=== PATIENT | male | born 1940 | race Caucasian/White ===

== ENCOUNTER → 2017-06-30 11:07 | Outpatient (CLI) | payer MEDICARE, SELFPAY ==
[2017-06-30 13:07] LABS: PSA,Total- Diagnostic 2.09 ng/mL (0.0-4.0)
== END ==
PROVIDERS: Family Provider Family Medicine; PCP Family Medicine; Visit Provider Nurse Practitioner Adult Health
DX: R97.20 Elevated prostate specific antigen [PSA] (principal)
CPT/HCPCS: 36415; 84153

== ENCOUNTER → 2017-08-22 09:19 | Outpatient (CLI) | payer MEDICARE, SELFPAY ==
--- NOTE | 2017-08-22 09:34 | MRI_ITS ---
STUDY: MRI LEFT HIP REASON FOR EXAM: Worsening left hip pain, no specific injury. TECHNIQUE: Standardized fat and water weighted pulse sequences were obtained in all 3 orthogonal planes. COMPARISON: MRI images 08/02/2012. FINDINGS: There is left hip arthrosis with very small marginal osteophytes and chondral thinning/irregularity (proton-density sagittal image 12). Normal acetabulum. There is a tear of the left superior labrum (inversion recovery coronal images 13-16) with a paralabral cyst (inversion recovery coronal image 13). Normal left femoral head. Normal left femoral neck and intratrochanteric region. There is cystic change of the contralateral right acetabulum and femoral head (inversion recovery coronal image 13). Normal gluteus minimus, medius and iliopsoas tendons and distal insertions. There is no trochanteric, iliopsoas or iliopectineal bursitis. Normal superior and inferior pubic rami. Normal pubic symphysis. Normal ischial tuberosity. Normal origin of the hamstring tendons. Normal visualized iliac wing, sacroiliac joint, and sacral ala. There is prosthetic enlargement (T1 coronal images 16, 17). MRI/Lower Ext Joint Only (Routine) IMPRESSION: Left hip arthrosis. Tear of the left superior labrum with paralabral cyst. Electronically Signed: Jesús Aceves MD at 11:22 EDT Tel , Service support ,
== END ==
PROVIDERS: Family Provider Family Medicine; PCP Family Medicine; Visit Provider Family Medicine
DX: M16.12 Unilateral primary osteoarthritis, left hip (principal)
CPT/HCPCS: 73721

== ENCOUNTER → 2017-08-30 09:43 | Outpatient (CLI) | payer MEDICARE, SELFPAY ==
--- NOTE | 2017-08-30 09:45 | RAD_ITS ---
STUDY: X-RAY - PELVIS AND LEFT HIP REASON FOR EXAM: Male, 76 years old. Atraumatic pain. TECHNIQUE: Radiological exam, hip, unilateral, with pelvis when performed; 2 or 3 views. COMPARISON: None. FINDINGS: There is a non-specific bowel gas pattern. There is a lobular ossification in the gluteal region probably from prior injections or remote trauma. There is mild generalized osteopenia. Normal bilateral iliac wings, sacroiliac joints and visualized sacrum. Normal bilateral superior and inferior pubic rami. Normal pubic symphysis. Normal bilateral ischial tuberosities. There is moderate arthrosis of the left hip and mild arthrosis of the right hip. RAD/Hip 2-3 Views with Pelvis IMPRESSION: Osteopenia with osteoarthrosis of both hips, left greater than right. Electronically Signed: Mayank Watters MD at 12:49 EDT , Service support ,
== END ==
PROVIDERS: Family Provider Family Medicine; PCP Family Medicine; Visit Provider Orthopaedic Surgery
DX: M25.552 Pain in left hip (principal); G89.29 Other chronic pain
CPT/HCPCS: 73502

== ENCOUNTER → 2017-09-27 14:28 | Outpatient (CLI) | payer MEDICARE, SELFPAY ==
--- NOTE | 2017-09-27 14:27 | RAD_ITS ---
STUDY: X-RAY CHEST REASON FOR EXAM: Male, 76 years old. Cough, 2 weeks TECHNIQUE: PA and lateral chest COMPARISON: None. FINDINGS: Scattered calcified pulmonary nodules consistent with old granulomatous disease. Lungs otherwise clear. The lungs are mildly hyperinflated and hyperlucent suggesting underlying COPD. There is no effusion or pneumothorax. There is no evidence of pneumonia. Normal cardiomediastinal silhouette, calvin and pleural margins. No acute osseous or upper abdominal process. Osteopenia. Thoracic kyphosis, mild. Multilevel bridging anterior osteophytes of the thoracic spine in a pattern suggesting diffuse idiopathic hyperostosis associated with only mild disc degenerative disease. RAD/Chest PA and Lateral IMPRESSION: No acute cardiopulmonary process. No convincing radiographic evidence of pneumonia. Electronically Signed: Quentin Centeno, at 16:24 EDT Tel , Service support ,
== END ==
PROVIDERS: Family Provider Family Medicine; PCP Family Medicine; Visit Provider Nurse Practitioner Family
DX: R05 Cough (principal)
CPT/HCPCS: 71046

== ENCOUNTER → 2018-02-09 09:34 | Outpatient (CLI) | payer MEDICARE, SELFPAY ==
[2018-02-09 12:52] LABS: Anion Gap 9 (5-15); BUN 23 mg/dL (7-18); BUN/Creat Ratio 22.5 RATIO (10-20); Calcium,Total 8.9 mg/dL (8.5-10.1); Chloride 101 mmol/L (98-107); Creatinine, Serum 1.02 mg/dL (0.70-1.30); EST Glomerular Filtration Rate 75 mL/min (>60); Est Glom Filt Rate - Afr Amer 91 mL/min (>60); Glucose 98 mg/dL (74-106); Potassium 3.6 mmol/L (3.5-5.1); Sodium Level 137 mmol/L (136-145)
== END ==
PROVIDERS: Family Provider Family Medicine; PCP Family Medicine; Referring Provider Nurse Practitioner Family; Visit Provider Nurse Practitioner Family
DX: I10 Essential (primary) hypertension (principal)
CPT/HCPCS: 36415; 80048

== ENCOUNTER → 2018-07-26 12:07 | Outpatient (CLI) | payer MEDICARE, SELFPAY ==
[2018-07-26 11:43] VITALS: BMI 31.1
[2018-07-26 14:26] LABS: ALB/GLOB Ratio 1.4 RATIO (0.9-2.4); AST(SGOT) 29 U/L (15-37); Alanine Aminotransfer ALT/SGPT 28 U/L (16-61); Albumin, Serum 4.2 g/dL (3.2-5.0); Alkaline Phosphatase 66 U/L (45-117); Anion Gap 7 (5-15); BUN 25 mg/dL (7-18); BUN/Creat Ratio 21.6 RATIO (10-20); Calcium,Total 8.2 mg/dL (8.5-10.1); Chloride 102 mmol/L (98-107); Cholesterol 167 mg/dL (200); Creatinine, Serum 1.16 mg/dL (0.70-1.30); EST Glomerular Filtration Rate 65 mL/min (>60); Est Glom Filt Rate - Afr Amer 78 mL/min (>60); Glucose 97 mg/dL (74-106); High Density Lipoprotein 62 mg/dL; Potassium 4.1 mmol/L (3.5-5.1); Protein, Total 7.2 g/dL (6.4-8.2); Sodium Level 136 mmol/L (136-145); Thyroid Stim Hormone (TSH) 4.92 uIU/mL (0.358-3.74); Triglycerides 175 mg/dL; Very Low Density Lipoprotein 35 mg/dL (5-40)
== END ==
PROVIDERS: Family Provider Family Medicine; PCP Family Medicine; Visit Provider Family Medicine
DX: E78.5 Hyperlipidemia, unspecified (principal)
CPT/HCPCS: 36415; 80053; 80061; 84443

== ENCOUNTER → 2018-07-31 16:29 | Outpatient (CLI) | payer MEDICARE, SELFPAY ==
[2018-07-26 11:43] VITALS: BMI 31.1
--- NOTE | 2018-07-31 16:40 | RAD_ITS ---
HISTORY: low back pain EXAM/TECHNIQUE: XR Spine Lumbar 2 or 3 Views: COMPARISON: None. FINDINGS: # of images incl. paperwork: 3 No fracture or dislocation or osseous destruction. Grade 1 degenerative 2 mm anterolisthesis of L4 on L5. Marked facet greater than disc degeneration L4-5 and L5-S1. No acute findings in the soft tissues. Calcific atherosclerosis. RAD/Lumbar Spine 2 or 3 Views IMPRESSION: Severe facet degeneration lower lumbar spine with grade 1 degenerative anterolisthesis of L4 on L5. at 0938 Reported and signed by: Marcos Lynn MD Electronically Signed: Marcos Lynn, at 9:37 EDT Tel , Service support ,
== END ==
PROVIDERS: Family Provider Family Medicine; PCP Family Medicine; Referring Provider Family Medicine; Visit Provider Family Medicine
DX: M54.9 Dorsalgia, unspecified (principal); G89.29 Other chronic pain
CPT/HCPCS: 72100

== ENCOUNTER → 2019-01-24 11:57 | Outpatient (CLI) | payer MEDICARE, SELFPAY ==
[2019-01-24 11:04] VITALS: BMI 31.1
[2019-01-24 14:39] LABS: Cholesterol 176 mg/dL (200); High Density Lipoprotein 60 mg/dL; Triglycerides 225 mg/dL; Very Low Density Lipoprotein 45 mg/dL (5-40)
== END ==
PROVIDERS: Family Provider Family Medicine; PCP Family Medicine; Visit Provider Family Medicine
DX: E03.9 Hypothyroidism, unspecified (principal)
CPT/HCPCS: 36415; 80061

== ENCOUNTER → 2019-06-27 11:35 | Outpatient (CLI) | payer MEDICARE, SELFPAY ==
[2019-06-27 13:06] LABS: Anion Gap 6 (5-15); BUN 17 mg/dL (7-18); Calcium,Total 8.9 mg/dL (8.5-10.1); Chloride 102 mmol/L (98-107); EST Glomerular Filtration Rate 77 mL/min (>60); Est Glom Filt Rate - Afr Amer 93 mL/min (>60); Glucose 99 mg/dL (74-106); Potassium 4.1 mmol/L (3.5-5.1); Sodium Level 136 mmol/L (136-145)
== END ==
PROVIDERS: PCP Family Medicine; Referring Provider Family Medicine; Visit Provider Family Medicine
DX: E87.1 Hypo-osmolality and hyponatremia (principal)
CPT/HCPCS: 36415; 80048

== ENCOUNTER → 2019-09-04 | Outpatient (CLI) | payer MEDICARE, SELFPAY | END | disposition home or self-care (01) | LOC: LABSPEC 09-05 14:00 | PROVIDERS: PCP Family Medicine; Referring Provider Family Medicine; Visit Provider Family Medicine | DX: Z20.828 Contact with and (suspected) exposure to other viral communicable diseases (principal) | CPT/HCPCS: 87635; G2023; U0004 ==

== ENCOUNTER → 2019-09-26 13:17 | Outpatient (CLI) | payer MEDICARE, SELFPAY ==
[2019-09-25 16:36] VITALS: BMI 29.4
== END ==
PROVIDERS: PCP Family Medicine; Referring Provider Family Medicine; Visit Provider Family Medicine
DX: R05 Cough (principal)

== ENCOUNTER → 2019-11-02 08:22 | Outpatient (CLI) | payer MEDICARE, SELFPAY ==
[2019-09-25 16:36] VITALS: BMI 29.4
--- NOTE | 2019-11-02 12:34 | PFTCOMP_ITS ---
COMPLETE PULMONARY FUNCTION TEST INTERPRETATION Brief HPI: Patient is a 78 year old male, currently under the care of Dr. Ornelas, who presents to [facility] for complete pulmonary function tests secondary to diagnosis of chronic cough. Respiratory therapist reports good effort and reproducible results. Interpretation: Forced expiration spirometry shows no large airways obstructive ventilatory defect with an FEV1 of 120% predicted. There is no significant bronchodilator response by strict ATS criteria. Spirograms are of good quality and plateau normally. The respiratory flow volume loop shows a normal pattern. Lung volumes by body plethysmography show a normal total lung capacity at 6.22 L, 110% predicted. All other lung volumes are within normal limits. Diffusion capacity by carbon monoxide is normal at 119% predicted. The airway resistance is normal. No previous pulmonary function tests were available for review. Impression: These pulmonary function tests are within normal limits.
== END ==
PROVIDERS: PCP Family Medicine; Referring Provider Family Medicine; Visit Provider Family Medicine
DX: R05 Cough (principal)
CPT/HCPCS: 94060; 94726; 94729

== ENCOUNTER 2020-02-19 12:56 | Outpatient (RCR) | payer MEDICARE, SELFPAY ==
[2020-02-14 13:06] VITALS: BMI 29.4
--- NOTE | 2020-02-19 14:00 | HP.PTEVAL ---
Patient's Visit Information SHAGUFTA MCQUEEN is a 79 year old M referred to Physical Therapy by Dr. Diana Laguerre DO with a diagnosis of L knee OA, balance deficits. Date of Evaluation: 02/19/20 Physical Therapist: Herman Smith, PT, ATC - Visit Plan Frequency: 1x/Week Duration: 2 Weeks Plan: Pt to perform balance performance assessment by Tha Zepeda PT, next visit. Then issue and instruct pt on HEP of L LE strengthening and balance activity. - Subjective Pt reports he has had balance concerns in L LE for a chronic period of time. Pt notes he has fallen a couple of times over the past 6 months. Pt notes he has had L knee pain as well for the past month which he believes is due to arthritis. Pt notes he had xrays taken last week but has not had any results as of yet. Pt notes his L foot tends to catch when he is decesending stairs, and notes he has to hold on to 2 handrails to avoid falls. Pt reports he does have some tingling and numbness in feet, but he is able to feel the bottom of his feet ok. Pt has started to use a walking stick when he walks outside secondary to LBP. 0/10 pain in L knee at rest, 8/10 pain with prolonged standing. - Pain L knee OA Pain Intensity (Out of 10): 0 Pain Intensity Range: 8 - Objective Neuro: B LE sensation is WNL to light touch. B achilles reflex= 2/3. MMT: L knee flexion and hip flexion 4-/5. All other B LE MMT= 5/5 throughout. ROM: B LE's are WFL on this date. Minor limitations with R knee flexion from past ACL surgery. FGA: - Balance Scores Functional Gait Assessment Score: 23 % Disability: 23.3400 - Goals Goal 1:: I with HEP Goal Time Frame: 1 Week - Rehabilitation Potential Physical Therapy Diagnosis: Pt has L knee pain, LE weakness, and balance deficits secondary to L knee OA. Rehabilitation Potential: Good - Anticipated Interventions Patient/Client Instruction: Educate patient on: Condition, Plan of Care For the Purpose of:: To improve self management Therapeutic Exercise to Include: Strength training, Endurance training, Balance training, Dynamic Lumbar Stabilization For the Purpose of:: To decrease pain, To improve muscle performance and motor function Thank you for the opportunity to evaluate your patient. For Medicare and Medicare HMO plans, please review the plan of care and approve it. It will need to be FAXED BACK to us at [phone] for Medicare purposes. For Medicare only, by signing this I certify the plan of care. Please let me know if there are questions or concerns regarding this plan of care. Physician Signature: Date:
--- NOTE | 2020-04-08 14:03 | HP.PT.NRP ---
SHAGUFTA Wagner SREESANDHYA was seen in my office for initial evaluation on 02/19/20. The following Plan of Care was established for this patient: Initial Frequency: 1x/Week Initial Duration: 2 Weeks Patient/Client Instruction: Educate patient on: Condition, Plan of Care For the Purpose of:: To improve self management Therapeutic Exercise to Include: Strength training, Endurance training, Balance training, Dynamic Lumbar Stabilization For the Purpose of:: To decrease pain, To improve muscle performance and motor function This patient was last seen in our office . Pertinent comments regarding their Physical therapy will appear below: Pt was evaluated for L knee pain on the date of 02/19/20. Pt has not returned through todays date and is discontinued at this time At this point I will be discontinuing this patient from physical therapy. I would be happy to see this patient again in the future if found appropriate by the physician. Thank you! Herman Smith, PT, ATC
== END 2020-02-19 19:00 | disposition home or self-care (01) ==
LOC: PT 12:56
PROVIDERS: PCP Family Medicine; Referring Provider Orthopaedic Surgery; Visit Provider Orthopaedic Surgery
DX: M17.12 Unilateral primary osteoarthritis, left knee (principal); R26.89 Other abnormalities of gait and mobility
CPT/HCPCS: 97161

== ENCOUNTER → 2020-04-09 11:25 | Outpatient (CLI) | payer MEDICARE, SELFPAY ==
--- NOTE | 2020-04-09 11:26 | RAD_ITS ---
STUDY: X-RAY CHEST REASON FOR EXAM: Male, 79 years old. COUGH, SHORT OF BREATH TECHNIQUE: 2 views COMPARISON: Prior chest radiograph 09/27/2017 FINDINGS: The lungs are clear and expanded. Calcified granuloma of the left upper lobe. Normal size heart. Normal mediastinum and calvin. Normal visualized pulmonary arteries. There is atherosclerotic calcification of the aortic arch with tortuosity. There are diffuse degenerative changes of the visualized thoracic spine. Normal visualized ribs, clavicles, and shoulders. There is no demonstrated abnormality of the visualized soft tissue structures of the upper abdomen. RAD/Chest PA and Lateral IMPRESSION: No acute cardiopulmonary findings or changes. Negative for new consolidation, other infiltrates or pleural effusion. Stigmata of old granulomatous disease. Normal stable cardiac size. Atherosclerotic changes of the thoracic aorta. Electronically Signed: Ofelia Amaya MD at 19:27 EST , Service support ,
== END ==
PROVIDERS: PCP Family Medicine; Referring Provider Nurse Practitioner Family; Visit Provider Nurse Practitioner Family
DX: R05 Cough (principal)
CPT/HCPCS: 71046

== ENCOUNTER → 2020-05-15 13:37 | Outpatient (CLI) | payer MEDICARE, SELFPAY ==
[2020-05-15 14:06] LABS: Absolute Lymphocyte Count 1.34 X10^3/uL (0.83-4.51); Absolute Neutrophil Count 5.6 X10^3/uL (2.0-7.7); Basophil# 0.04 X10^3/uL; Basophil% 0.5 % (0-1); Eosinophil# 0.07 X10^3/uL; Eosinophils% 0.9 % (0-5); Hematocrit 39.3 % (40-54); Hemoglobin 13.5 g/dL (13.0-16.5); Lymphocyte # 1.34 X10^3/ul (4.0); Lymphocyte % 17.6 % (19-41); Mean Corp Hgb Conc 34.4 g/dL (32-36); Mean Corpuscular Hgb 32.8 pg (27.0-32.0); Mean Corpuscular Volume 95.4 fL (80-94); Mean Platelet Vol. 8.8 fl (6.2-12.0); Monocyte# 0.57 X10^3/uL; Monocyte% 7.5 % (0-10); NRBC Flagged by Analyzer 0 % (0-5); Neutrophil # 5.56 X10^3/uL (2.7-7.7); Neutrophil % 73.2 % (47-70); Platelet Count 221 K/mm3 (150-450); RBC Distribution Width CV 11.6 % (11.6-14.6); RBC Distribution Width SD 39.6 fl (35.1-43.9); Red Blood Count 4.12 M/mm3 (4.6-6.2); White Blood Count 7.6 K/mm3 (4.4-11.0)
[2020-05-18 12:07] LABS: Alternaria tenuis <0.10 kU/L (Class 0); Ash, White <0.10 kU/L (Class 0); Aspergillus fumigatus <0.10 kU/L (Class 0); Bermuda Grass <0.10 kU/L (Class 0); Birch <0.10 kU/L (Class 0); Black Walnut <0.10 kU/L (Class 0); Cat Hair / Dander,Stand <0.10 kU/L (Class 0); Cedar, Mountain <0.10 kU/L (Class 0); Cladosporium herbarum <0.10 kU/L (Class 0); Cockroach, American <0.10 kU/L (Class 0); Cottonwood <0.10 kU/L (Class 0); D farinae Mite <0.10 kU/L (Class 0); D pteronyssinus <0.10 kU/L (Class 0); Dog Epithelia <0.10 kU/L (Class 0); Elm, American White <0.10 kU/L (Class 0); Immunoglobulin E 32 IU/mL (6-495); Maple/Box Elder <0.10 kU/L (Class 0); Mulberry, White <0.10 kU/L (Class 0); Oak, White <0.10 kU/L (Class 0); Pecan <0.10 kU/L (Class 0); Penicillium Notatum <0.10 kU/L (Class 0); Pigweed, Rough <0.10 kU/L (Class 0); Ragweed, Short/Common <0.10 kU/L (Class 0); Russian Thistle <0.10 kU/L (Class 0); Sheep Sorrel <0.10 kU/L (Class 0); Sycamore, American <0.10 kU/L (Class 0); Timothy Grass <0.10 kU/L (Class 0)
[2020-05-19 18:39] LABS: Mouse Urine <0.10 kU/L (Class 0)
[2020-05-20 20:07] LABS: Aspirgillus flavus Negative (Neg:<1:1); Aspirgillus fumigatus Negative (Neg:<1:1); Aspirgillus niger Negative (Neg:<1:1)
[2020-05-20 21:19] LABS: Immunoglobulin E 34 IU/mL (6-495)
== END ==
PROVIDERS: PCP Family Medicine; Referring Provider Internal Medicine Critical Care Medicine; Visit Provider Internal Medicine Critical Care Medicine
DX: R05 Cough (principal); J30.9 Allergic rhinitis, unspecified; K21.9 Gastro-esophageal reflux disease without esophagitis
CPT/HCPCS: 36415; 82785; 85025; 86003; 86606

== ENCOUNTER → 2020-08-21 13:45 | Outpatient (CLI) | payer MEDICARE, SELFPAY ==
[2020-08-21 13:09] VITALS: BMI 30.4
[2020-08-21 15:41] LABS: ALB/GLOB Ratio 1.5 RATIO (0.9-2.4); AST(SGOT) 29 U/L (15-37); Alanine Aminotransfer ALT/SGPT 36 U/L (16-61); Albumin, Serum 4.2 g/dL (3.2-5.0); Alkaline Phosphatase 75 U/L (45-117); Anion Gap 7 (5-15); BUN 21 mg/dL (7-18); BUN/Creat Ratio 21.9 RATIO (10-20); Calcium,Total 8.8 mg/dL (8.5-10.1); Chloride 101 mmol/L (98-107); Cholesterol 191 mg/dL (200); Creatinine, Serum 0.96 mg/dL (0.70-1.30); EST Glomerular Filtration Rate 80 mL/min (>60); Est Glom Filt Rate - Afr Amer 97 mL/min (>60); Globulin 2.8 g/dL (2.2-4.2); Glucose 92 mg/dL (74-106); High Density Lipoprotein 67 mg/dL; Potassium 3.8 mmol/L (3.5-5.1); Sodium Level 135 mmol/L (136-145); Triglycerides 152 mg/dL; Very Low Density Lipoprotein 30 mg/dL (5-40)
== END ==
PROVIDERS: PCP Family Medicine; Referring Provider Family Medicine; Visit Provider Family Medicine
DX: E78.5 Hyperlipidemia, unspecified (principal); E03.9 Hypothyroidism, unspecified
CPT/HCPCS: 36415; 80053; 80061

== ENCOUNTER → 2021-02-23 11:54 | Outpatient (CLI) | payer MEDICARE, SELFPAY ==
[2020-11-19 08:55] VITALS: BMI 30.4
--- NOTE | 2021-02-23 13:49 | NEURO_ITS ---
NCS and/or EMG Patient Report Ordering Doctor: Chucho Miranda NP DATE OF SERVICE: 02/23/21 Indication: Intermittent numbness and tingling of both hands (right greater than left). Symptoms have improved following PT and bracing. Evaluate for median neuropathy. Findings: Nerve conduction studies were performed in the right and left upper extremities. The right median motor study recording the abductor pollicis brevis showed a normal amplitude, prolonged distal latency and mildly slowed conduction velocity. The right ulnar motor study recording the abductor digiti minimi showed a normal amplitude, normal distal latency and normal conduction velocity. No conduction block or focal slowing was present across the elbow. The right median sensory response recording digit two showed a reduced amplitude, prolonged latency and markedly slowed conduction velocity. The right ulnar sensory response recording digit five showed a normal amplitude, latency and conduction velocity. The right radial sensory response recording over the extensor snuff box showed a normal amplitude, latency and conduction velocity. The left median motor study recording the abductor pollicis brevis showed a normal amplitude, prolonged distal latency and borderline conduction velocity. The left ulnar motor study recording the abductor digiti minimi showed a normal amplitude, normal distal latency and normal conduction velocity. No conduction block or focal slowing was present across the elbow. The left median sensory response recording digit two showed a borderline amplitude, prolonged latency and slowed conduction velocity. The left ulnar sensory response recording digit five showed a normal amplitude, latency and conduction velocity. The left radial sensory response recording over the extensor snuff box showed a normal amplitude, latency and conduction velocity. Right median-ulnar lumbrical / interosseous motor latencies showed a prolonged median latency compared to the ulnar. Left median-ulnar lumbrical / interosseous motor latencies showed a prolonged median latency compared to the ulnar. Needle EMG of the right upper extremity and cervical paraspinal muscles was performed. No denervation was seen in any muscle, but insertional activity was increased in the abductor pollicis brevis. Motor units in the abductor pollicis brevis were large amplitude, long duration with normal recruitment. All other motor unit morphology, activation and recruitment patterns were normal. Needle EMG of the left abductor pollicis brevis muscle was performed. No denervation was seen. Motor unit morphology, activation and recruitment patterns were normal. Impression: This is an abnormal study. 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 These findings are compatible with the clinical diagnosis of carpal tunnel syndrome. In addition, there is no electrophysiologic evidence of a superimposed cervical radiculopathy in the right upper extremity. Fer Moran D.O. [facility] Codes Neurology Neurology Interp Codes: 02747-72 [facility] [place]erv tst castrejon (interp) (59), [id number] [facility] [place] w/n test comp (interp) and [id number] Nr cndj test 13/> studies (interp)
== END ==
PROVIDERS: PCP Family Medicine; Referring Provider Nurse Practitioner Family; Visit Provider Nurse Practitioner Family
DX: G56.03 Carpal tunnel syndrome, bilateral upper limbs (principal)
CPT/HCPCS: 95885; 95886; 95913

== ENCOUNTER → 2021-03-09 10:50 | Outpatient (CLI) | payer MEDICARE, SELFPAY ==
[2021-03-09 12:23] LABS: PSA,Total - Annual Screen 3.24 ng/mL (0.00-4.00)
== END ==
PROVIDERS: PCP Family Medicine; Referring Provider Urology; Visit Provider Urology
DX: Z12.5 Encounter for screening for malignant neoplasm of prostate (principal)
CPT/HCPCS: 36415; 84153; G0103

== ENCOUNTER 2021-07-29 11:36 | Outpatient (CLI) | payer MEDICARE, SELFPAY ==
[2021-07-29 12:23] LABS: Hematocrit 40.3 % (40-54); Hemoglobin 14.1 g/dL (13.0-16.5); Mean Corpuscular Hgb 33.7 pg (27.0-32.0); Mean Corpuscular Volume 96.2 fL (80-94); Mean Platelet Vol. 8.8 fl (6.2-12.0); Platelet Count 243 K/mm3 (150-450); RBC Distribution Width CV 11.9 % (11.6-14.6); RBC Distribution Width SD 41.5 fl (35.1-43.9); Red Blood Count 4.19 M/mm3 (4.6-6.2); White Blood Count 6.6 K/mm3 (4.4-11.0)
[2021-07-29 13:10] LABS: Anion Gap 7 (5-15); BUN 20 mg/dL (7-18); BUN/Creat Ratio 22.2 RATIO (10-20); Calcium,Total 8.4 mg/dL (8.5-10.1); Chloride 102 mmol/L (98-107); Cholesterol 190 mg/dL (200); EST Glomerular Filtration Rate 86 mL/min (>60); Est Glom Filt Rate - Afr Amer 104 mL/min (>60); Glucose 100 mg/dL (74-106); High Density Lipoprotein 70 mg/dL; Potassium 3.8 mmol/L (3.5-5.1); Sodium Level 136 mmol/L (136-145); Thyroid Stim Hormone (TSH) 2.13 uIU/mL (0.358-3.74); Triglycerides 132 mg/dL; Very Low Density Lipoprotein 26 mg/dL (5-40)
== END 2021-07-29 23:59 | disposition home or self-care (01) ==
LOC: BIMLAB 11:37
PROVIDERS: PCP Family Medicine; Referring Provider Nurse Practitioner Family; Visit Provider Nurse Practitioner Family
DX: E03.9 Hypothyroidism, unspecified (principal); K21.9 Gastro-esophageal reflux disease without esophagitis; R05.9 Cough, unspecified; G56.03 Carpal tunnel syndrome, bilateral upper limbs; M54.9 Dorsalgia, unspecified; G89.29 Other chronic pain; I10 Essential (primary) hypertension
CPT/HCPCS: 36415; 80048; 80061; 84443; 85027

== ENCOUNTER → 2021-11-04 | Outpatient (CLI) | payer MEDICARE, SELFPAY ==
--- NOTE | 2021-11-04 13:47 | CT_ITS ---
STUDY: CT ABDOMEN AND PELVIS WITH CONTRAST REASON FOR EXAM: Male, 80 years old. Two-month history of perineal swelling. RADIATION DOSAGE (If Supplied By Facility): CTDIvol = ( 15.12 ) mGy, DLP = ( 963.22 ) mGycm TECHNIQUE: Transaxial images were obtained from the dome of the diaphragm to the symphysis pubis with oral contrast. Oral and amp; IV Readi-CAT and amp; 100mL Isovue-300 was administered. Sagittal and coronal images were reconstructed. Individualized dose optimization techniques were used for this CT. COMPARISON: None. FINDINGS: Minimal degree of increased markings at the lung bases. This is suggestive of mild scarring. Small bulla seen in the right lower lobe. Tiny calcific granulomas in the left lower lobe. This measures 1.1 cm. Coronary artery calcification. Normal liver. Normal gallbladder and extrahepatic biliary system. There are multiple benign calcified granulomata of the spleen. Normal pancreas. Normal bilateral adrenal glands. Normal right kidney. Normal left kidney. There is a small hiatal hernia. Normal small intestine. There are multiple colonic diverticula consistent with diverticulosis. The appendix is visualized and appears normal. There is scattered atherosclerotic calcification of the abdominal aorta, without a demonstrated aneurysm. Normal inferior vena cava. Normal retroperitoneum. Normal urinary bladder. There is enlargement of the prostate gland. It measures 4.6 x 4.2 cm. This causes indentation at the bladder base. There is evidence of a prior TURP. Moderate sized right inguinal hernia containing fat. Mild degree of increased markings in the subcutaneous fat in the region of both medial aspects of the gluteus. No evidence of abscess collection. Calcified right injection granuloma. There are degenerative changes of the visualized lumbar spine. CT/Abdomen/Pelvis WITH Contrast IMPRESSION: Moderate sized right inguinal hernia containing fat. Increased markings in the subcutaneous fat along the medial aspects of both gluteal regions without focal abscess or fluid collection. Prostatic enlargement with indentation of the bladder base. Evidence of a prior TURP. Electronically Signed: Farhad Avila MD at 15:24 EDT ,
[2021-11-04 13:56] LABS: CREATININE FINGERSTICK < 0.9 mg/dL (0.70-1.30); EGFR FINGERSTICK > 60.0000 mL/min (>60)
== END | disposition home or self-care (01) ==
PROVIDERS: PCP Family Medicine; Visit Provider Nurse Practitioner Family
DX: K40.90 Unilateral inguinal hernia, without obstruction or gangrene, not specified as recurrent (principal); R10.2 Pelvic and perineal pain; G89.29 Other chronic pain
CPT/HCPCS: 74177; Q9967

== ENCOUNTER → 2022-04-07 | Outpatient (CLI) | payer MEDICARE, SELFPAY ==
[2022-04-07 12:45] LABS: Anion Gap 8 (5-15); BUN 21 mg/dL (7-18); Calcium,Total 8.4 mg/dL (8.5-10.1); Chloride 101 mmol/L (98-107); Creatinine, Serum 0.96 mg/dL (0.70-1.30); EST Glomerular Filtration Rate 80 mL/min (>60); Est Glom Filt Rate - Afr Amer 97 mL/min (>60); Glucose 104 mg/dL (74-106); Potassium 4.1 mmol/L (3.5-5.1); Sodium Level 134 mmol/L (136-145)
== END | disposition home or self-care (01) ==
LOC: BIMLAB 09:05
PROVIDERS: PCP Family Medicine; Referring Provider Family Medicine; Visit Provider Family Medicine
DX: I10 Essential (primary) hypertension (principal)
CPT/HCPCS: 36415; 80048

== ENCOUNTER → 2022-04-21 | Outpatient (CLI) | payer MEDICARE, SELFPAY | END | disposition home or self-care (01) | PROVIDERS: PCP Family Medicine; Visit Provider Family Medicine | DX: R55 Syncope and collapse (principal) | CPT/HCPCS: 93225; 93226 ==

== ENCOUNTER → 2022-10-06 | Outpatient (CLI) | payer MEDICARE, SELFPAY ==
[2022-10-06 13:29] LABS: ALB/GLOB Ratio 1.3 RATIO (0.9-2.4); AST(SGOT) 31 U/L (15-37); Alanine Aminotransfer ALT/SGPT 31 U/L (16-61); Albumin, Serum 3.8 g/dL (3.2-5.0); Alkaline Phosphatase 69 U/L (45-117); Anion Gap 8 (5-15); BUN 26 mg/dL (7-18); BUN/Creat Ratio 29.7 RATIO (10-20); Calcium,Total 8.3 mg/dL (8.5-10.1); Chloride 105 mmol/L (98-107); Cholesterol 157 mg/dL (200); Creatinine, Serum 0.87 mg/dL (0.70-1.30); EST Glomerular Filtration Rate 89 mL/min (>60); Est Glom Filt Rate - Afr Amer 108 mL/min (>60); Globulin 2.9 g/dL (2.2-4.2); Glucose 106 mg/dL (74-106); High Density Lipoprotein 66 mg/dL; Potassium 3.9 mmol/L (3.5-5.1); Protein, Total 6.7 g/dL (6.4-8.2); Sodium Level 135 mmol/L (136-145); Triglycerides 93 mg/dL; Very Low Density Lipoprotein 19 mg/dL (5-40)
== END | disposition home or self-care (01) ==
LOC: BIMLAB 10:03
PROVIDERS: PCP Family Medicine; Visit Provider Family Medicine
DX: E03.9 Hypothyroidism, unspecified (principal); I10 Essential (primary) hypertension
CPT/HCPCS: 36415; 80053; 80061

== ENCOUNTER → 2023-01-17 | Outpatient (CLI) | payer MEDICARE, SELFPAY ==
[2023-01-17 14:09] LABS: PSA,Total - Annual Screen 5.24 ng/mL (0.00-4.00)
== END | disposition home or self-care (01) ==
LOC: LAB 13:19
PROVIDERS: PCP Family Medicine; Referring Provider Nurse Practitioner; Visit Provider Nurse Practitioner
DX: Z12.5 Encounter for screening for malignant neoplasm of prostate (principal)
CPT/HCPCS: 36415; 84153; G0103

== ENCOUNTER → 2023-03-10 | Outpatient (CLI) | payer MEDICARE, SELFPAY ==
[2023-03-10 15:42] LABS: Hemoglobin A1c 5.2 % (3.8-5.6)
== END | disposition home or self-care (01) ==
LOC: BIMLAB 14:31
PROVIDERS: PCP Family Medicine; Visit Provider Family Medicine
DX: R73.03 Prediabetes (principal)
CPT/HCPCS: 36415; 83036

== ENCOUNTER → 2023-09-15 | Outpatient (CLI) | payer MEDICARE, SELFPAY ==
[2023-09-15 16:42] LABS: Absolute Lymphocyte Count 1.34 X10^3/uL (0.83-4.51); Absolute Neutrophil Count 5.7 X10^3/uL (2.0-7.7); Basophil# 0.04 X10^3/uL; Basophil% 0.5 % (0-1); Eosinophil# 0.11 X10^3/uL; Eosinophils% 1.4 % (0-5); Hemoglobin 14.2 g/dL (13.0-16.5); Lymphocyte # 1.34 X10^3/ul (0.83-4.51); Lymphocyte % 17.1 % (19-41); Mean Corp Hgb Conc 33.8 g/dL (32-36); Mean Corpuscular Hgb 32.9 pg (27.0-32.0); Mean Corpuscular Volume 97.4 fL (80-94); Mean Platelet Vol. 9.6 fl (6.2-12.0); Monocyte# 0.59 X10^3/uL; Monocyte% 7.5 % (0-10); NRBC Flagged by Analyzer 0 % (0-5); Neutrophil # 5.73 X10^3/uL (2.7-7.7); Neutrophil % 73.2 % (47-70); Platelet Count 213 K/mm3 (150-450); RBC Distribution Width CV 11.7 % (11.6-14.6); RBC Distribution Width SD 42.4 fl (35.1-43.9); Red Blood Count 4.31 M/mm3 (4.6-6.2); White Blood Count 7.8 K/mm3 (4.4-11.0)
[2023-09-15 17:01] LABS: BNP,B-Type NATRIURETIC PEPTIDE 231.4 pg/mL (0-100)
[2023-09-15 17:14] LABS: ALB/GLOB Ratio 1.2 RATIO (0.9-2.4); AST(SGOT) 21 U/L (15-37); Alanine Aminotransfer ALT/SGPT 26 U/L (16-61); Albumin, Serum 3.8 g/dL (3.2-5.0); Alkaline Phosphatase 61 U/L (45-117); Anion Gap 5 (5-15); BUN 29 mg/dL (7-18); BUN/Creat Ratio 29.4 RATIO (10-20); Calcium,Total 8.5 mg/dL (8.5-10.1); Chloride 106 mmol/L (98-107); Creatinine, Serum 0.99 mg/dL (0.70-1.30); EST Glomerular Filtration Rate 77 mL/min (>60); Est Glom Filt Rate - Afr Amer 93 mL/min (>60); Globulin 3.2 g/dL (2.2-4.2); Glucose 98 mg/dL (74-106); Magnesium 2.5 mg/dL (1.6-2.6); Potassium 4.1 mmol/L (3.5-5.1); Sodium Level 136 mmol/L (136-145); Thyroid Stim Hormone (TSH) 4.79 uIU/mL (0.358-3.74); Troponin-I HS 16 pg/mL (3.0-78.0)
== END | disposition home or self-care (01) ==
LOC: BIMLAB 15:08
PROVIDERS: PCP Family Medicine; Referring Provider Physician Assistant; Visit Provider Physician Assistant
DX: R06.02 Shortness of breath (principal); E03.9 Hypothyroidism, unspecified; G47.33 Obstructive sleep apnea (adult) (pediatric)
CPT/HCPCS: 36415; 80053; 83735; 83880; 84443; 84484; 85025

== ENCOUNTER 2023-09-17 17:07 | Emergency (ER) | payer MEDICARE, SELFPAY ==
[2023-09-17 17:10] VITALS: BP 141/71; PULSE 55; RESP 18; TEMP 36.4; O2SAT 98; BMI 29.5
--- NOTE | 2023-09-17 17:36 | EX.ED.DYSGE1 ---
HPI History of Present Illness Chief Complaint: Palpitations Detail of Chief Complaint: Lightheaded and bradycardia, heart rate 28 Informant: patient Onset/Context/Timing Onset: Today (Heart rate 28 on pulse oximeter.) and Weeks (Dyspnea on exertion and discomfort in chest) Context: Sudden Onset Timing: Intermittent (For both) Quality: Detailed in the HPI narrative Location: Cardiovascular Current Severity: Gone Maximum Severity: Moderate Worsened by: Dyspnea and discomfort in chest with activity past week Relieved by: Rest Associated Symptoms Associated Symptoms: Nothing Narrative Narrative: Patient is an 82-year-old male. He has history of asthma, obstructive sleep apnea, hypothyroidism, hyperlipidemia, hypertension and GERD. He was seen by ANGEL Palma for [facility] for bradycardia on September 15. Patient was scheduled for outpatient testing which included a echocardiogram. He had outpatient labs which included a CBC, comprehensive metabolic panel, thyroid, magnesium, BNP and troponin. Reason for echo was bradycardia. Also for shortness of breath. Today at approximately 30 this morning while standing he was lightheaded diaphoretic and pulse ox read heart rate of 28. Patient does have a Fitbit. He was unaware that he could access the foot bed to determine if rate was accurate or not. He has a resting average heart rate in the low 50s for the past 30 days. He has complained of shortness of breath and dyspnea with activity and chest discomfort with activity for the past week. He has no known coronary artery disease. He has to sleep with multiple pillows because of his asthma. He has noticed recent swelling of his lower extremities. Denies abdominal pain, black stool or maroon-colored stool. Patient is not on an anticoagulant. Prior similar symptoms: Yes Recent Illness/Hospitalization: [facility] Medical History Arthritis Asthma Bilateral carpal tunnel syndrome Bilateral hand numbness Chronic back pain CTS (carpal tunnel syndrome) Dupuytren's contracture of left hand Enlarged prostate GERD (gastroesophageal reflux disease) History of cataract History of pneumonia History of stomach ulcers Hyperlipemia Hypertension NADEEM (obstructive sleep apnea) Home Medications dutasteride 0.5 mg capsule 0.5 mg PO QDAY 08/10/17 [History Last Taken Unknown] cholecalciferol (vitamin D3) 50 mcg (2,000 unit) tablet 2,000 unit PO DAILY 07/26/18 [History Last Taken Unknown] cyanocobalamin (vitamin B-12) 1,000 mcg tablet (Vitamin B-12) 1,000 mcg PO DAILY 07/26/18 [History Last Taken Unknown] ascorbic acid (vitamin C) 1,000 mg tablet 2 g PO DAILY 02/14/20 [History Last Taken Unknown] magnesium aspartate-potassium aspartate 250 mg-250 mg tablet tab PO DAILY 02/14/20 [History Last Taken Unknown] vitamins A,C,D-tcjc-tvqbtc 4,296 mcg-226 mg-90 mg capsule (ICaps AREDS) 1 cap PO BID 02/14/20 [History Last Taken Unknown] budesonide-formoterol HFA 160 mcg-4.5 mcg/actuation aerosol inhaler (Symbicort) 2 puff inhalation BID #1 ea 06/11/20 [Rx Last Taken Unknown] montelukast 10 mg tablet (Singulair) 10 mg PO QPM #90 tabs 08/12/20 [Rx Last Taken Unknown] atorvastatin 10 mg tablet 10 mg PO QDAY #90 tabs 08/19/20 [Rx Last Taken Unknown] losartan 50 mg tablet 50 mg PO QDAY #90 tabs 08/21/20 [Rx Last Taken Unknown] pyridoxine (vitamin B6) 25 mg tablet 25 mg PO DAILY 02/25/21 [History Last Taken Unknown] tamsulosin 0.4 mg capsule (Flomax) 0.4 mg PO DAILY 12/10/21 [History Last Taken Unknown] hydrochlorothiazide 12.5 mg tablet 12.5 mg PO DAILY #90 tabs 04/07/22 [Rx Last Taken Unknown] albuterol sulfate 90 mcg/actuation aerosol inhaler (ProAir HFA) 1 - 2 puff inhalation Q6H PRN shortness of breath or wheezing #8.5 grams 04/19/22 [Rx Last Taken Unknown] antiarthritic combination no.2 900 mg tablet (glucosamine-chondroitin) mg PO 04/20/22 [History Last Taken Unknown] levothyroxine 125 mcg tablet 125 mcg PO QDAY #1 TAB 10/06/22 [Rx Last Taken Unknown] Kenalog 40 mg/mL suspension for injection (triamcinolone acetonide) 20 mg (0.5 mL) Tendon Sheath Inj. ONCE trigger finger #0.5 mL 06/15/23 [Clinic Last Taken Unknown] Allergy/AdvReac Type Severity Reaction Status Date / Time No Known Allergies Allergy Verified 09/17/23 17:27 Family History Mother Thyroid disorder Myocardial infarction, Onset Age: 87 Hypertension Hyperlipemia Arthritis Diabetes Father Hypertension Hyperlipemia Grandfather Cancer stomach Surgical History History of carpal tunnel surgery of right wrist History of prostate surgery History of thyroidectomy History of tonsillectomy S/P cataract extraction and insertion of intraocular lens Status post repair of anterior cruciate ligament Social History Smoking Status: Former smoker how long ago did patient quit smokin alcohol intake: current alcohol intake frequency: a few times a month Alcohol type: wine substance use type: does not use what type of physical activity do you participate in: bicycling and weight training frequency: 5-6 times per week ROS ROS ED Constitutional Constitutional ED: Denies chills, fever(s) or subjective Eyes Eyes: Denies blurry vision, change in vision or diplopia ENT ENT ED: Denies ear pain, rhinorrhea or sore throat Cardiovascular Cardiovascular: Reports chest pain and orthopnea; Denies palpitations, paroxysmal nocturnal dyspnea or racing heartbeat Respiratory/Chest Respiratory/Chest: Reports dyspnea, dyspnea on exertion and orthopnea; Denies cough, paroxysmal nocturnal dyspnea or sputum Gastrointestinal Gastrointestinal: Denies abdominal pain, nausea or vomiting Genitourinary Genitourinary ED: Reports other Details: Patient endorses increased urination. He was told to drink more fluids. Musculoskeletal Musculoskeletal: Denies arthralgias or myalgias Integumentary Denies rash Neurologic Neurologic: Reports weakness Endocrine Endocrinology: Denies cold intolerance or heat intolerance Hematologic/Lymphatic Hematologic/Lymphatic: Reports systems reviewed and no addt'l complaints, except as documented EXAM Physical Exam Const Vital Signs: 09/17/23 17:10 09/17/23 17:08 09/17/23 18:08 Temperature 97.6 F L Temperature Source Temporal Pulse Rate 55 L 61 Respiratory Rate 18 16 Respiratory Effort Normal Blood Pressure 141/71 H 136/72 H Blood Pressure Mean 94 93 Pulse Ox 98 97 Oxygen Delivery Method Room Air Room Air 09/17/23 19:00 09/17/23 20:00 Temperature Temperature Source Pulse Rate 54 L 51 L Respiratory Rate 15 14 Respiratory Effort Blood Pressure 125/65 H 131/66 H Blood Pressure Mean 85 87 Pulse Ox 96 94 Oxygen Delivery Method Room Air Room Air Positive well nourished and well developed Constitutional Narrative: Vital signs remarkable for mild elevation of blood pressure and bradycardia General Appearance ED: well developed and NAD; Negative for pallor HEENT Reports moist mucous membranes HEENT Narrative: Head is atraumatic normocephalic. Ears normal. Nares patent. Eyes PERRL and EOMs intact bilaterally General Eye ED: Negative for pale conjunctiva or scleral icterus Neck no lymphadenopathy, supple and no JVD Chest Wall inspection of chest normal Resp normal respiratory effort and clear to auscultation bilaterally Cardio regular rhythm, S1 normal heart sound, S2 normal heart sound and no murmurs Rate: bradycardia GI normal to inspection, nondistended, normoactive bowel sounds, non-tender, non-distended and no masses; Negative for hepatosplenomegaly GI Narrative: There is no pulsatile mass nor is there a bruit. Inspection of the back is normal. Extremity Extremity Narrative: Otherwise normal General Extremety ED: Yes edema General Extremity: edema Neuro No oriented x3, No CN's II-XII intact bilaterally and no sensory deficits noted Sensorium / Orientation: alert Psych mental status grossly normal Skin no rashes or lesions noted, no wounds and No skin turgor normal General Skin Exam: Negative for jaundice or pallor MDM MDM MDM Narrative Medical decision making narrative: Monitor revealed narrow complex rhythm with rate of 61. Patient was in bigeminy. Suspect the pulse ox read low because patient probably was in bigeminy. Patient presently is not complaining of orthostatic lightheadedness. He is denying any chest discomfort presently. Suspect his dyspnea and chest discomfort with activity is anginal equivalent. Will obtain cardiac markers, EKG. Chest x-ray was obtained to evaluate for evidence of any pulmonary abnormality i.e. pneumonia and evidence of congestive heart failure. CBC to assess H&H. BMP to assess renal function. Patient had recent thyroid test this was not repeated. Of note he is on levothyroxine 125 mcg daily. History & Record Review Additional record(s) reviewed:: Prior outpatient record (Documented in the HPI narrative) and Prior labs Lab Data Attestation: I reviewed the patient's lab results. Lab results narrative: CBC is unremarkable. MCV and MCH is slightly elevated. Basic metabolic panel is remarkable for elevated BUN to creatinine ratio of 35:1 otherwise unremarkable. First troponin is normal at 14. Troponin from the ninth was 16. 2-hour troponin is 15 with a delta of 1. This is negative. Patient be discharged home to have outpatient test scheduled for Tuesday. Labs: Laboratory Results - last 24 hr 09/17/23 09/17/23 17:20 19:59 WBC 8.4 RBC 4.28 L Hgb 13.9 Hct 40.8 MCV 95.3 H MCH 32.5 H MCHC 34.1 RDW Std Deviation 40.2 RDW Coeff of Wendie 11.6 Plt Count 203 MPV 9.4 Immature Gran % (Auto) 0.200 Neut % (Auto) 71.6 H Lymph % (Auto) 17.6 L [place] % (Auto) 9.1 Eos % (Auto) 1.0 Baso % (Auto) 0.5 Absolute Neuts (auto) 6.0 Absolute Lymphs (auto) 1.48 Nucleated RBC % 0 Sodium 132 L Potassium 3.9 Chloride 101 Carbon Dioxide 24.0 Anion Gap 7 BUN 34 H Creatinine 0.97 Estim Creat Clear Calc 59.38 Est GFR (MDRD) Af Amer 95 Est GFR (MDRD) Non-Af 79 BUN/Creatinine Ratio 35.0 H Glucose 99 Calcium 8.8 Troponin I High Sens 14 15 Radiography Chest X-Ray - ED: 2 View and Read by ED Physician (Chronic changes. No acute changes. There is mild cardiomegaly. There is no pneumothorax or infiltrate. Left heart border is slightly obscured. There is no effusion noted on the lateral. [place] structures are unremarkable. There is an dependently interpreted by me at 1837) Diagnostic Testing: Clinical Impression(s) from Imaging Studies Chest X-Ray 09/17/23 18:30 IMPRESSION: Normal x-ray examination of the chest. Electronically Signed: Quentin Serrano MD at 18:43 EDT , Discharge Plan Triage Chief Complaint: Palpitations ED Provider: Rodríguez Fam Dx/Rx/DC Orders Clinical Impression: Ventricular bigeminy seen on quality assurance monitor, Hypertension, Hyperlipemia, WING (dyspnea on exertion), Bradycardia, sinus Instructions: ED About Arrhythmias, ED Bradycardia Prescriptions: No Action dutasteride 0.5 mg capsule 0.5 mg PO QDAY cholecalciferol (vitamin D3) 2,000 unit tablet 2,000 unit PO DAILY cyanocobalamin (vitamin B-12) [Vitamin B-12] 1,000 mcg tablet 1,000 mcg PO DAILY ICaps AREDS [id number] capsule 1 cap PO BID ascorbic acid (vitamin C) 1,000 mg tablet 2 g PO DAILY magnesium aspartate-potassium aspartate 250 mg-250 mg tablet 250-250 mg tablet PO DAILY budesonide-formoterol [Symbicort] 160-4.5 mcg/actuation HFA aerosol inhaler 2 puff INHALATION BID Qty: 1 11RF Rx Instructions: administer with spacer, rinse mouth after each use losartan 50 mg tablet 50 mg PO QDAY Qty: 90 3RF pyridoxine (vitamin B6) 25 mg tablet 25 mg PO DAILY tamsulosin [Flomax] 0.4 mg capsule 0.4 mg PO DAILY hydrochlorothiazide 12.5 mg tablet 12.5 mg PO DAILY Qty: 90 3RF levothyroxine 125 mcg tablet 125 mcg PO QDAY Qty: 1 2RF glucosamine-chondroitin 900 mg tablet PO triamcinolone acetonide [Kenalog] 40 mg/mL suspension 20 mg Tendon Sheath Inj. ONCE Qty: 0.5 0RF montelukast [Singulair] 10 mg tablet 10 mg PO QPM Qty: 90 3RF atorvastatin 10 mg tablet 10 mg PO QDAY Qty: 90 3RF albuterol sulfate [ProAir HFA] 90 mcg/actuation HFA aerosol inhaler 1 - 2 puff INHALATION Q6H PRN (Reason: shortness of breath or wheezing) Qty: 8.5 1RF Primary Care Provider: Carlitos Ornelas Referrals: Carlitos Ornelas DO [Primary Care Provider] - 5-7 Days Activity Restrictions/Additional Instructions: Keep scheduled appointment for outpatient cardiac testing scheduled for Tuesday, September 18 Disposition Disposition: Home, Self Care
[2023-09-17 17:52] LABS: Absolute Lymphocyte Count 1.48 X10^3/uL (0.83-4.51); Basophil# 0.04 X10^3/uL; Basophil% 0.5 % (0-1); Eosinophil# 0.08 X10^3/uL; Hematocrit 40.8 % (40-54); Hemoglobin 13.9 g/dL (13.0-16.5); Lymphocyte # 1.48 X10^3/ul (0.83-4.51); Lymphocyte % 17.6 % (19-41); Mean Corp Hgb Conc 34.1 g/dL (32-36); Mean Corpuscular Hgb 32.5 pg (27.0-32.0); Mean Corpuscular Volume 95.3 fL (80-94); Mean Platelet Vol. 9.4 fl (6.2-12.0); Monocyte# 0.77 X10^3/uL; Monocyte% 9.1 % (0-10); NRBC Flagged by Analyzer 0 % (0-5); Neutrophil # 6.03 X10^3/uL (2.7-7.7); Neutrophil % 71.6 % (47-70); Platelet Count 203 K/mm3 (150-450); RBC Distribution Width CV 11.6 % (11.6-14.6); RBC Distribution Width SD 40.2 fl (35.1-43.9); Red Blood Count 4.28 M/mm3 (4.6-6.2); White Blood Count 8.4 K/mm3 (4.4-11.0)
[2023-09-17 18:08] VITALS: BP 136/72; PULSE 61; RESP 16; O2SAT 97
[2023-09-17 18:12] LABS: Anion Gap 7 (5-15); BUN 34 mg/dL (7-18); Calcium,Total 8.8 mg/dL (8.5-10.1); Chloride 101 mmol/L (98-107); Creatinine, Serum 0.97 mg/dL (0.70-1.30); EST Glomerular Filtration Rate 79 mL/min (>60); Est Glom Filt Rate - Afr Amer 95 mL/min (>60); Estimated Creatinine Clearance 59.38 ml/min; Glucose 99 mg/dL (74-106); Potassium 3.9 mmol/L (3.5-5.1); Sodium Level 132 mmol/L (136-145); Troponin-I HS (w/2H Reflex) 14 pg/mL (3.0-78.0)
--- NOTE | 2023-09-17 18:30 | RAD_ITS ---
STUDY: X-RAY CHEST REASON FOR EXAM: Male, 82 years old. Dyspnea on exertion, TECHNIQUE: PA and lateral views of the chest. COMPARISON: None. FINDINGS: The lungs are clear and expanded. There is no demonstrated pleural abnormality. Normal size heart. Normal mediastinum and calvin. Normal visualized pulmonary arteries. Normal visualized aortic arch and descending thoracic aorta. Normal visualized thoracic spine. Normal visualized ribs, clavicles, and shoulders. There is no demonstrated abnormality of the visualized soft tissue structures of the upper abdomen. RAD/Chest PA and Lateral IMPRESSION: Normal x-ray examination of the chest. Electronically Signed: Quentin Serrano MD at 18:43 EDT ,
[2023-09-17 19:00] VITALS: BP 125/65; PULSE 54; RESP 15; O2SAT 96
[2023-09-17 19:38] LABS: Reflex Troponin-HS? (from REC) Y
[2023-09-17 20:00] VITALS: BP 131/66; PULSE 51; RESP 14; O2SAT 94
[2023-09-17 20:26] LABS: Troponin-I HS 15 pg/mL (3.0-78.0)
[2023-09-17 20:46] VITALS: BP 133/65; PULSE 55; RESP 17; TEMP 36.7; O2SAT 95
== END 2023-09-17 20:47 | disposition home or self-care (01) ==
PROVIDERS: Emergency Provider Emergency Medicine; PCP Family Medicine; Visit Provider Emergency Medicine
DX: R00.2 Palpitations (principal); J45.909 Unspecified asthma, uncomplicated; Z87.891 Personal history of nicotine dependence; R07.89 Other chest pain; M54.9 Dorsalgia, unspecified; R42 Dizziness and giddiness; E78.5 Hyperlipidemia, unspecified; R06.09 Other forms of dyspnea; R00.1 Bradycardia, unspecified; G47.33 Obstructive sleep apnea (adult) (pediatric); I10 Essential (primary) hypertension; G89.29 Other chronic pain; E03.9 Hypothyroidism, unspecified; K21.9 Gastro-esophageal reflux disease without esophagitis
CPT/HCPCS: 36415; 71046; 80048; 84484; 85025; 93005; 99284; A4216

== ENCOUNTER → 2023-09-19 | Outpatient (CLI) | payer MEDICARE, SELFPAY | END | disposition home or self-care (01) | PROVIDERS: PCP Family Medicine; Referring Provider Internal Medicine; Visit Provider Internal Medicine | DX: R55 Syncope and collapse (principal) | CPT/HCPCS: 93225; 93226 ==

== ENCOUNTER → 2023-10-05 | Outpatient (CLI) | payer MEDICARE, SELFPAY ==
[2023-10-05 12:35] LABS: PSA,Total- Diagnostic 3.31 ng/mL (0.0-4.0)
== END | disposition home or self-care (01) ==
LOC: BIMLAB 10:39
PROVIDERS: PCP Family Medicine; Visit Provider Family Medicine
DX: N40.0 Benign prostatic hyperplasia without lower urinary tract symptoms (principal)
CPT/HCPCS: 36415; 84153

== ENCOUNTER → 2023-10-24 | Outpatient (CLI) | payer MEDICARE, SELFPAY ==
--- NOTE | 2023-10-24 08:49 | ECHOD_ITS ---
Reason For Study: SOB Procedure This was a 2D Doppler, Color Flow transthoracic echocardiogram. Exam performed in department. Left Ventricle Normal LV size. Moderate concentric left ventricular hypertrophy. Left ventricular systolic function is normal. The left ventricular ejection fraction is 55 %. Stage 1 diastolic dysfunction. No regional wall motion abnormalities noted. Right Ventricle Normal RV size. Normal systolic function. Atria The left atrium is moderately enlarged. Normal right atrium. Mitral Valve Normal mitral valve. Mild (1+) eccentric mitral valve insufficiency. Tricuspid Valve Normal tricuspid valve. Mild (1+) tricuspid valve insufficiency. Pulmonary artery systolic pressure is 35 mmHg. Aortic Valve Trisinus/trileaflet aortic valve. Mild (1+) aortic valve insufficiency. Pulmonic Valve Normal pulmonic valve. Great Vessels Normal aortic root. The pulmonary artery is normal size. Inferior vena cava collapse with respiration. Pericardium/Pleural No pericardial effusion. MMode/2D Measurements & Calculations LVIDd: 5.3 cm IVSd: 1.5 cm LVOT diam: 2.0 cm LVIDs: 3.9 cm LVPWd: 1.8 cm LVOT area: 3.2 cm2 FS: 25.8 % LAV(MOD-bp): 84.7 ml LVAd ap4: 26.6 cm2 SV(MOD-sp4): 15.2 ml LAV(MOD-bp) Indexed: 43.7 ml/m2 LVLd ap4: 8.8 cm LAV(MOD-sp2): 81.2 ml EDV(MOD-sp4): 67.6 ml LAV(MOD-sp4): 81.4 ml EDV(sp4-el): 68.6 ml LVAs ap4: 21.1 cm2 LVLs ap4: 7.9 cm ESV(MOD-sp4): 52.4 ml ESV(sp4-el): 47.9 ml EF(MOD-sp4): 22.5 % EF(sp4-el): 30.1 % SV(sp4-el): 20.6 ml LA A4 area: 25.6 cm2 LA dimension(2D): 4.4 cm RA A4 area: 15.3 cm2 TAPSE: 1.7 cm Time Measurements MV dec time: 0.32 sec Doppler Measurements & Calculations MV E max alvaro: 47.7 cm/sec Lat Peak E' Alvaro: 8.5 cm/sec Med Peak E' Alvaro: 3.9 cm/sec MV A max alvaro: 73.9 cm/sec E/E' lat: 5.6 E/E' med: 12.2 MV E/A: 0.64 MV V2 max: 69.5 cm/sec Ao V2 max: 142.2 cm/sec MV max P.9 mmHg MV dec slope: 147.2 cm/sec2 Ao max P.1 mmHg MV V2 mean: 42.0 cm/sec Ao V2 mean: 97.5 cm/sec MV mean P.80 mmHg Ao mean P.4 mmHg MV V2 VTI: 27.0 cm Ao V2 VTI: 38.5 cm AV (velocity ratio): 0.72 MVA(VTI): 3.3 cm2 LEVON(I,D): 2.3 cm2 LEVON(V,D): 2.2 cm2 AI max alvaro: 425.4 cm/sec LV V1 max: 96.6 cm/sec SV(LVOT): 89.3 ml AI max P.4 mmHg LV V1 max P.7 mmHg LV V1 mean P.3 mmHg AI dec slope: 207.5 cm/sec2 LV V1 mean: 71.2 cm/sec AI P1/2t: 600.4 msec LV V1 VTI: 27.8 cm TR max alvaro: 280.0 cm/sec TR max P.4 mmHg ECHO/Echo Complete Interpretation Summary Normal LV size. Moderate concentric left ventricular hypertrophy. Left ventricular systolic function is normal. The left ventricular ejection fraction is 55 %. Stage 1 diastolic dysfunction. Mild (1+) eccentric mitral valve insufficiency. Mild (1+) aortic valve insufficiency. Ordering Physician: Amarjit Del Angel Referring Physician: Amarjit Del Angel Performed By: Kalyani Davey RCS
== END | disposition home or self-care (01) ==
PROVIDERS: PCP Family Medicine; Referring Provider Physician Assistant; Visit Provider Physician Assistant
DX: R06.02 Shortness of breath (principal)
CPT/HCPCS: 93306

== ENCOUNTER → 2023-11-02 | Outpatient (CLI) | payer MEDICARE, SELFPAY ==
[2023-11-07 10:07] LABS: Free Kappa Light Chains 15.2 mg/L (3.3-19.4); Free Lambda Light Chains 11.4 mg/L (5.7-26.3); Immunoglobulin A 72 mg/dL (61-437); Immunoglobulin G 1009 mg/dL (603-1613); Immunoglobulin M 43 mg/dL (15-143)
== END | disposition home or self-care (01) ==
LOC: LAB 15:33
PROVIDERS: PCP Family Medicine; Referring Provider Internal Medicine Cardiovascular Disease; Visit Provider Internal Medicine Cardiovascular Disease
DX: E85.9 Amyloidosis, unspecified (principal)
CPT/HCPCS: 36415; 82784; 83883; 86334; 86335

== ENCOUNTER → 2023-11-24 | Outpatient (CLI) | payer MEDICARE, SELFPAY ==
--- NOTE | 2023-11-24 12:24 | STRESSREP ---
Stress Test Report Exercise myocardial perfusion stress test. 83-year-old man with a history of coronary artery disease Stress protocol: Resting EKG demonstrates sinus bradycardia with a rate of 49 bpm resting blood pressure is 154/74 mmHg. The patient exercised according to the regular Clem protocol for a total duration of 6 minutes attaining a maximum heart rate of 160 bpm which was 84% of maximum predicted heart rate; the maximum workload was 7 metabolic equivalents. At rest there were no ST or T wave changes noted to suggest ischemia and at peak exercise upsloping ST changes only were noted which did not meet the criteria for ischemia. No clinical angina was noted the test was terminated due to the target heart rate being achieved/fatigue. The peak blood pressure was 162/90 mmHg. Rate-pressure product was 13,300. Myocardial perfusion protocol. 12 mCi of technetium 99m sestamibi was injected at rest. The patient exercised according to regular Clem protocol for total duration of 6-minute and at peak exercise 33.8 mCi of technetium 99m sestamibi was injected stress images were obtained stress and rest images were reconstructed in comparing the short axis vertical long and horizontal long axis. Perfusion SPECT analysis: Review of the stress images demonstrate normal uptake of tracer noted in all areas of the myocardium. The resting images similarly demonstrate normal uptake of tracer noted in all areas of the myocardium. No areas of reversibility are noted to suggest ischemia no previous infarct was noted. Conclusion: Normal exercise myocardial perfusion stress test at a moderate workload
== END | disposition home or self-care (01) ==
PROVIDERS: PCP Family Medicine; Referring Provider Internal Medicine Cardiovascular Disease; Visit Provider Internal Medicine Cardiovascular Disease
DX: R06.02 Shortness of breath (principal); R00.1 Bradycardia, unspecified
CPT/HCPCS: 78452; 93017; A9500

== ENCOUNTER → 2023-12-27 | Outpatient (CLI) | payer MEDICARE, SELFPAY | END | disposition home or self-care (01) | LOC: LABSPEC 16:23 | PROVIDERS: PCP Family Medicine; Referring Provider Urology; Visit Provider Urology | DX: N30.00 Acute cystitis without hematuria (principal) | CPT/HCPCS: 87086; 87088 ==

== ENCOUNTER 2024-01-18 12:01 | Observation (INO) | payer MEDICARE, SELFPAY ==
[2024-01-06 13:56] LABS: Absolute Lymphocyte Count 1.07 X10^3/uL (0.83-4.51); Absolute Neutrophil Count 7.1 X10^3/uL (2.0-7.7); Basophil# 0.05 X10^3/uL; Basophil% 0.6 % (0-1); Eosinophil# 0.09 X10^3/uL; Hematocrit 39.4 % (40-54); Lymphocyte # 1.07 X10^3/ul (0.83-4.51); Lymphocyte % 11.8 % (19-41); Mean Platelet Vol. 9.6 fl (6.2-12.0); Monocyte# 0.72 X10^3/uL; NRBC Flagged by Analyzer 0 % (0-5); Neutrophil # 7.07 X10^3/uL (2.7-7.7); Neutrophil % 78.3 % (47-70); Platelet Count 233 K/mm3 (150-450); RBC Distribution Width CV 11.9 % (11.6-14.6); RBC Distribution Width SD 42.7 fl (35.1-43.9); Red Blood Count 4.06 M/mm3 (4.6-6.2)
[2024-01-06 14:22] LABS: Anion Gap 4 (5-15); BUN 32 mg/dL (7-18); BUN/Creat Ratio 32.2 RATIO (10-20); Calcium,Total 8.7 mg/dL (8.5-10.1); Chloride 107 mmol/L (98-107); Creatinine, Serum 0.99 mg/dL (0.70-1.30); EST Glomerular Filtration Rate 76 mL/min (>60); Est Glom Filt Rate - Afr Amer 93 mL/min (>60); Glucose 98 mg/dL (74-106); Sodium Level 139 mmol/L (136-145)
[2024-01-18] VITALS (15 sets, daily range): BP systolic 129–152; BP diastolic 55–69; PULSE 46–61; RESP 14–18; TEMP 36.2–36.8; O2SAT 92–99; BMI 29.9; BMI 31.9
--- NOTE | 2024-01-18 | IMM_PTH ---
PATIENT: SHAGUFTA MCQUEEN LOC: MS3 U#:[id number] AGE/SX: 83/M ROOM: MS305 RE01/18/[address]: Dr. Victorino Peters MD : 1940 BED: 1 DIS: 01/19/2024 SPEC #: [id number] RECD: 01/20/24 13:03 STATUS: HIRO RELa #: [id number] LEVY: 01/18/24 00:[address]: Victorino Peters DEPT: IMMUNOHISTOCHEMISTRY RECD BY: Zak Wilson ENTERED: 01/20/24 13:03 SP TYPE: IMMUNO OTHR DR: MD Dr. Carlitos Emerson, DO Tissues: Prostate, NOS Procedures: Pankeratin (initial) Pankeratin (add) PHYSICIAN & INSTITUTION [place] [address] SPECIMEN INFORMATION: Tissue Source: Prostate chips Clinical Info: Enlarged prostate Specimen Number: [id number] CPT code: 24373,26130 METHODOLOGY: Deparaffinized sections of prefer/formalin-fixed tissue or PAP/DQ stained slides are incubated with monoclonal/polyclonal antibodies/oligonucleotide probes. Localization is made via biotin free immunoperoxidase method. Appropriate controls are performed and reacted as expected. Results on target cell population are indicated in the following table: RESULTS: ANTIBODY / CLONE RESULT Block 1 AE1-3 (AE1/AE3/PCK26) negative Block 6 AE1-3 (AE1/AE3/PCK26) negative These tests were developed and their performance characteristics determined by [facility]. They may not have been cleared or approved by the U.S. Food and Drug Administration. The FDA has determined that such clearance or approval is not necessary. The above immunohistochemical/dualISH markers are ordered and reviewed by the Pathologist. INTERPRETATION: Prostate, transurethral resection: Bening prostatic tissue. AM/mr 01/23/2024
--- NOTE | 2024-01-18 11:13 | PCM.PRE.AN2 ---
ASA Classification* ASA Classification ASA Classification: 3 Assessment & Plan Anesthesia* Anesthesia Assessment Anesthesia Assessment: Discussed sedation and/or anesthesia options, risks, benefits, and alternatives with patient/parents/legal guardian/POA. Questions invited. The patient/parents/legal guardian/POA seems to understand and agrees to proceed with anesthesia plan. Reviewed the physical assessment, medical history, allergy history and patient home medications list prior to surgery/procedure/anesthetic and documented any changes. Performed airway and anesthesia risk assessments. Anesthesia Type Anesthesia Type: General Anesthesia Focused Assessment* Airway Assessment Mouth opens: >3 cm Mallampati Score: II Focused Labs Anesthesia Preop lab: CBC WBC 9.0 K/mm3 (4.4-11.0) 01/06/24 13:20 RBC 4.06 M/mm3 (4.6-6.2) L 01/06/24 13:20 Hgb 13.0 g/dL (13.0-16.5) 01/06/24 13:20 Hct 39.4 % (40-54) L 01/06/24 13:20 Plt Count 233 K/mm3 (150-450) 01/06/24 13:20 CHEMISTRY Potassium 4.0 mmol/L (3.5-5.1) 01/06/24 13:20 Sodium 139 mmol/L (136-145) 01/06/24 13:20 Magnesium 2.5 mg/dL (1.6-2.6) 09/15/23 15:08 BUN 32 mg/dL (7-18) H 01/06/24 13:20 Creatinine 0.99 mg/dL (0.70-1.30) 01/06/24 13:20 Glucose 98 mg/dL (74-106) 01/06/24 13:20 TSH 2.050 uIU/mL (0.358-3.740) 01/06/24 13:20 COAG Pre-Assessment Diagnosis/Proposed Procedure Planned Operative Procedure(s): Cysto,TUR,Prostate,Olympus Anesthesia History Anesthesia History - chocolate dipper: Anesthesia History - chocolate dipper Hx Hospitalization No 01/05/24 08:43 Any Problems With Anesthesia No 01/05/24 08:43 Cholinesterase deficiency No 01/05/24 08:43 You/Your Family Experience No 01/05/24 08:43 fever (hyperthermia) with Relationship Recent Exposure to Contagious Disease Does patient have nerve No 01/05/24 08:43 stimulator Patient instructed to have device shut off --Does patient have Pacemaker or ICD? When Was Last Pacemaker Check QUESTION #4 FULL TEXT: You/Your Family Experience fever (hyperthermia) with Anesthesia Last Oral Intake Last Oral intake: Last Oral Intake NPO since Meds taken in AM with sips of water? Meds patient instructed to take am of surgery PONV PONV - chocolate dipper: PONV - chocolate dipper Female No 01/05/24 08:43 HX of Motion Sickness No 01/05/24 08:43 HX of N/V After Surgery No 01/05/24 08:43 Non-Smoker Yes 01/05/24 08:43 Duration of Surgery greater Yes 01/05/24 08:43 than 60 minutes Number of Risk Factors 2 01/05/24 08:43 PONV Score Moderate Risk 01/05/24 08:43 Height & Weight Height & Weight: Anesthesia: Height & Weight Height 5 ft 6 in 11/02/23 13:59 Respiratory Assessment Respiratory Assessment - chocolate dipper: Respiratory Tract Infection Hx - chocolate dipper Hx Respiratory Tract Infection No 01/05/24 08:43 STOP Sleep Apnea STOP Sleep Apnea - chocolate dipper: STOP Sleep Apnea - chocolate dipper Hx Hypertension Yes 01/05/24 08:43 Hx Sleep Apnea Yes 01/05/24 08:43 CPAP Yes 01/05/24 08:43 BIPAP No 01/05/24 08:43 Do you snore loudly (louder than talking or can be heard Do you often feel tired/ fatigued/ sleepy during daytime? Has anyone observed you stop breathing during sleep? STOP Results Positive 01/05/24 08:43 QUESTION #5 FULL TEXT : Do you snore loudly (louder than talking or can be heard through closed doors)? 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 Specify any problems Hx of Preganancy in last 3 N/A 01/05/24 08:43 Months Nurse Filling Out Transfusion NBUCHER 01/05/24 08:43 & Questions: Date: 01/05/24 01/05/24 08:43 Time: 08:45 01/05/24 08:43 Patient unable to answer at this time (ie. confused, unrespo /Reproduction History /Reproductive History - chocolate dipper: /Reproductive Hx- chocolate dipper Hx Now No 01/05/24 08:43 Gestational Age (in weeks): EDC: Hx Hx Para Hx Section SAB No 01/05/24 08:43 Active Medications Active Medications: Current Medications Generic Name Dose Route Start Last Admin Trade Name Freq PRN Reason Stop Dose Admin Cefazolin Sodium 2 gm/ Sodium 110 mls @ 150 mls/hr 01/18/24 13:15 Chloride IV 01/18/24 13:58 PREOP ONE [facility] Medical History Wears hearing aid Loss of hearing Wears glasses Thyroid disease BPH (benign prostatic hyperplasia) Prostate disease High cholesterol Former smoker History of echocardiogram History of stress test Cardiology follow-up encounter Bradycardia Shortness of breath Near syncope Right inguinal hernia Bilateral carpal tunnel syndrome Dupuytren's contracture of left hand CTS (carpal tunnel syndrome) Bilateral hand numbness Asthma Chronic cough Hypothyroidism NADEEM (obstructive sleep apnea) History of stomach ulcers Enlarged prostate History of pneumonia Hyperlipemia Hypertension GERD (gastroesophageal reflux disease) History of cataract Chronic back pain Arthritis Home Medications ?Medication ?Instructions ?Recorded ?Last Taken ?Type vitamins A,C,Y-dxuy-vdyjut 4,296 1 cap PO BID 02/14/20 Unknown History mcg-226 mg-90 mg capsule (ICaps AREDS) budesonide-formoterol HFA 160 2 puff inhalation BID #1 ea 06/11/20 Unknown Rx mcg-4.5 mcg/actuation aerosol inhaler (Symbicort) montelukast 10 mg tablet 10 mg PO QPM #90 tabs 08/12/20 Unknown Rx (Singulair) atorvastatin 10 mg tablet 10 mg PO QDAY #90 tabs 08/19/20 Unknown Rx losartan 50 mg tablet 50 mg PO QDAY #90 tabs 08/21/20 Unknown Rx tamsulosin 0.4 mg capsule (Flomax) 0.8 mg PO DAILY 12/10/21 Unknown History albuterol sulfate 90 mcg/actuation 1 - 2 puff inhalation Q6H PRN 04/19/22 Unknown Rx aerosol inhaler (ProAir HFA) shortness of breath or wheezing #8.5 grams antiarthritic combination no.2 900 1,800 mg PO DAILY 04/20/22 Unknown History mg tablet (glucosamine-chondroitin) apple cider vinegar 500 mg tablet 500 mg PO BID 11/02/23 Unknown History levothyroxine 125 mcg tablet 137 mcg PO QDAY 01/05/24 Unknown History Handicap placard #1 ea 01/06/24 Unknown Rx Allergy/AdvReac Type Severity Reaction Status Date / Time No Known Allergies Allergy Verified 01/05/24 08:37 Family History Mother Thyroid disorder Myocardial infarction, Onset Age: 87 Hypertension Hyperlipemia Arthritis Diabetes Father Hypertension Hyperlipemia Grandfather Cancer stomach Surgical History History of transurethral resection of prostate History of carpal tunnel surgery of right wrist S/P cataract extraction and insertion of intraocular lens Status post repair of anterior cruciate ligament History of tonsillectomy History of prostate surgery History of thyroidectomy Social History household members: spouse current occupational status: retired pets and animals: No Smoking Status: Former smoker how long ago did patient quit smokin alcohol intake: current alcohol intake frequency: a few times a month Alcohol type: wine substance use type: does not use caffeine: Yes (2-3) Type: coffee what type of physical activity do you participate in: bicycling and weight training frequency: other seatbelt use: always do you feel safe at home: Yes Review of Systems (Anesthesia) ROS Narrative System reviewed and no additional complaints, except as documented.
[2024-01-18] MEDS: Lactated Ringers 1,000 ML 15 ML IV (11:41)
--- NOTE | 2024-01-18 12:04 | HP.PCM_ITS ---
HPI - General General Date of Service: 01/18/24 Chief Complaint: BPH with obstruction HPI Narrative SHAGUFTA MCQUEEN, is a 83 M who presents for a transurethral resection of the prostate for BPH with obstruction [facility] Medical History Wears hearing aid Loss of hearing Wears glasses Thyroid disease BPH (benign prostatic hyperplasia) Prostate disease High cholesterol Former smoker History of echocardiogram History of stress test Cardiology follow-up encounter Bradycardia Shortness of breath Near syncope Right inguinal hernia Bilateral carpal tunnel syndrome Dupuytren's contracture of left hand CTS (carpal tunnel syndrome) Bilateral hand numbness Asthma Chronic cough Hypothyroidism NADEEM (obstructive sleep apnea) History of stomach ulcers Enlarged prostate History of pneumonia Hyperlipemia Hypertension GERD (gastroesophageal reflux disease) History of cataract Chronic back pain Arthritis Home Medications ?Medication ?Instructions ?Recorded ?Last Taken ?Type vitamins A,C,Y-yqlm-zwglqe 4,296 1 cap PO BID 02/14/20 01/17/24 History mcg-226 mg-90 mg capsule (ICaps AREDS) budesonide-formoterol HFA 160 2 puff inhalation BID #1 ea 06/11/20 01/18/24 06:00 Rx mcg-4.5 mcg/actuation aerosol inhaler (Symbicort) montelukast 10 mg tablet 10 mg PO QPM #90 tabs 08/12/20 01/17/24 Rx (Singulair) atorvastatin 10 mg tablet 10 mg PO QDAY #90 tabs 08/19/20 01/17/24 Rx tamsulosin 0.4 mg capsule (Flomax) 0.8 mg PO BID prostate 12/10/21 01/17/24 History albuterol sulfate 90 mcg/actuation 1 - 2 puff inhalation Q6H PRN 04/19/22 01/18/24 06:00 Rx aerosol inhaler (ProAir HFA) shortness of breath or wheezing #8.5 grams antiarthritic combination no.2 900 1,800 mg PO DAILY 04/20/22 01/17/24 History mg tablet (glucosamine-chondroitin) apple cider vinegar 500 mg tablet 500 mg PO BID 11/02/23 01/17/24 History levothyroxine 125 mcg tablet 137 mcg PO QDAY 01/05/24 01/18/24 05:00 History Handicap placard #1 ea 01/06/24 Unknown Rx losartan 50 mg tablet 50 mg PO QHS blood pressure 01/18/24 01/17/24 History Allergy/AdvReac Type Severity Reaction Status Date / Time No Known Allergies Allergy Verified 01/18/24 11:19 Family History Mother Thyroid disorder Myocardial infarction, Onset Age: 87 Hypertension Hyperlipemia Arthritis Diabetes Father Hypertension Hyperlipemia Grandfather Cancer stomach Surgical History History of transurethral resection of prostate History of carpal tunnel surgery of right wrist S/P cataract extraction and insertion of intraocular lens Status post repair of anterior cruciate ligament History of tonsillectomy History of prostate surgery History of thyroidectomy Social History household members: spouse current occupational status: retired pets and animals: No Smoking Status: Former smoker how long ago did patient quit smokin alcohol intake: current alcohol intake frequency: a few times a month Alcohol type: wine substance use type: does not use caffeine: Yes (2-3) Type: coffee what type of physical activity do you participate in: bicycling and weight training frequency: other seatbelt use: always do you feel safe at home: Yes Vital Signs Vital Signs Vital Signs: 01/18/24 11:31 01/18/24 11:31 Temperature 98.3 F Temperature Source Temporal Pulse Rate 59 L Respiratory Rate 16 Respiratory Pattern Normal Blood Pressure 152/59 H Blood Pressure Mean 90 Blood Pressure Source Monitor Blood Pressure Position Semi-Fowlers Blood Pressure Location Right Arm Pulse Ox 96 Oxygen Delivery Method Room Air Weight Weight: 84 kg Body Mass Index (BMI) 29.9 Results Lab / Micro Data 01/06/24 13:20 01/06/24 13:20
--- NOTE | 2024-01-18 12:05 | DCINST_ITS ---
Discharge Instructions Diet Discharge Diet: No restrictions Activity Discharge Activity: Return to Normal Activity and May Not Drive (while taking narcotic pain medications.) Dressing / Incision Call your doctor if you observe: Fever of 101 or Higher Follow Up Care Please Follow Up With: Victorino Peters MD When: Call [phone] for an appointment Test Results: Test results from this visit will be discussed in further detail at your follow- up appointment, if applicable. Discharge Plan Admission Primary Reason for Your Visit: turp Attending Provider: Victorino Peters Primary Care Provider: Carlitos Ornelas Consulting Providers: Itz Mccullough Instructions Print Language: Chinese Discharge Orders/Prescriptions Prescriptions: Continued ICaps AREDS 14,320-226-200 [id number] capsule 1 cap PO BID budesonide-formoterol [Symbicort] 160-4.5 mcg/actuation HFA aerosol inhaler 2 puff INHALATION BID Qty: 1 11RF Rx Instructions: administer with spacer, rinse mouth after each use tamsulosin [Flomax] 0.4 mg capsule 0.8 mg PO BID glucosamine-chondroitin 900 mg tablet 1,800 mg PO DAILY apple cider vinegar 500 mg tablet 500 mg PO BID levothyroxine 125 mcg tablet 137 mcg PO QDAY losartan 50 mg tablet 50 mg PO QHS montelukast [Singulair] 10 mg tablet 10 mg PO QPM Qty: 90 3RF atorvastatin 10 mg tablet 10 mg PO QDAY Qty: 90 3RF albuterol sulfate [ProAir HFA] 90 mcg/actuation HFA aerosol inhaler 1 - 2 puff INHALATION Q6H PRN (Reason: shortness of breath or wheezing) Qty: 8.5 1RF (DME) Handicap placard See Rx Instructions .Route .MEDSUPPLY Qty: 1 0RF Rx Instructions: Duration 5 years, Disability makes it difficult to walk 50 feet or more. Referrals / Follow Up: Carlitos Ornelas DO [Primary Care Provider] - Victorino Peters MD [Med Staff - Active Staff] - Disposition Disposition (needs filled in before D/C Order can be placed): Home, Self Care
[2024-01-18] MEDS: Cefazolin 2 GM in 0.9% Normal Saline (100mL Bag) 100 ML IV (12:57)
--- NOTE | 2024-01-18 13:15 | PROS_PTH ---
PATIENT: SHAGUFTA MCQUEEN LOC: [facility] U#:[id number] AGE/SX: 83/M ROOM: IL305 RE01/18/[address]: Dr. Victorino Peters MD : 1940 BED: 1 DIS: 01/19/2024 SPEC #: [id number] RECD: 01/19/24 08:48 STATUS: HIRO KAMARA #: [id number] LEVY: 01/18/24 13:[address]: Victorino Peters DEPT: SURGICAL PATHOLOGY RECD BY: Lan Staley ENTERED: 01/19/24 10:10 SP TYPE: TURP OTHR DR: MD Dr. Carlitos Emerson, DO Tissues: Prostate, NOS Procedures: Surgery Specimen Level IV HEADER OPERATION: Transurethral resection, prostate PRE-OP DIAGNOSIS: Enlarged prostate TISSUE SUBMITTED: Prostate chips MICROSCOPIC DIAGNOSIS Prostate, transurethral resection: Benign nodular hyperplasia, glandular and stromal types. Chronic inflammation. Benign urothelial with associated mild chronic inflammation. AM. 01/20/2024 COMMENT Immunohistochemistry ([id number]) supports the above diagnosis. MICROSCOPIC DESCRIPTION Slides are reviewed. GROSS DESCRIPTION Received is one container labeled with the patient's name and designated prostate tissue. The specimen consists of multiple irregular fragments of pink-friedman, rubbery, soft tissue that in aggregate weigh 12.3 gm and measure in aggregate 5.5 x 6.0 x 2.0 cm. Starter Mechanic tissue is submitted in ten cassettes. 01/19/2024 TC:3 CPT: 06488
--- NOTE | 2024-01-18 14:06 | PCM.POST.ANE ---
Anesthesia: Postop Eval I Current Vital Signs Temperature: 97.9 F Pulse Rate: 52 Blood Pressure: 147/64 Respiratory Rate: 14 Pulse Ox: 97 Oxygen Delivery Method: Room Air Assessment Airway patent: Yes Spontaneous unlabored respirations: Yes Mental status: Awake nausea: No Vomiting: No Anesthesia Complication: No Fluid Hydration Crystalloid volume administer (ml): 800 Total IV fluid infused: 800 Progress Note Anesthesia document: Postop Eval 1 completed: Yes
--- NOTE | 2024-01-18 14:12 | PCM.OPRPT ---
Report of Operation Date of Procedure: 01/18/24 Pre-Operative Diagnosis: BPH with obstruction Post-Operative Diagnosis: The same Surgery/Procedure Performed:: Transurethral section of prostate Description of Surgical Findings:: In the preoperative setting I discussed with the patient how the surgery would be done with expect afterwards. We discussed how a prostate resection is done and we discussed the risk of the surgery including, bleeding, infection, retrograde ejaculation, changes with ejaculation or intercourse,. We discussed the possibility that the resection of the prostate may not alleviate his urinary symptoms. We discussed the small risk of developing scar tissue along the urethral channel and strictures. We also discussed the chance of the prostate could grow back and he may need further surgery or treatment in the future for prostate problems. Patient was taken back to the operating room, timeout procedure was performed, he was identified and marked and placed on the operating room table. He underwent general anesthesia. He was placed in dorsolithotomy position. Penis and testicles were prepped and draped in usual sterile fashion. Went into the bladder using the visual obturator with a resectoscope. Once inside the bladder identified the right and left ureteral orifice. I then identified the prostate and the anatomy of the prostate. I marked out the area of the sphincter and the verumontanum was identified. I then proceeded with the prostate resection first resected the median lobe. And then resected the right lobe of the prostate. Then to resect the left lobe of the prostate. I then resected the apical tissue of the prostate. This was a complete resection of all obstructive tissue to improve voiding and relieve obstruction. I then made sure that there was no injury to the sphincter or the verumontanum was still intact. At the end of the resection all the chips were Ellik out of the bladder. I then identified the left and right ureteral orifice and these were confirmed to be in good position and effluxing and not injured. The resectoscope was removed, a 22 [place] catheter was placed into the bladder on continuous irrigation. And the urine was fairly light pink color and draining normally. He was taken back to the PACU in good condition. Surgeon: Victorino Peters Type of Anesthesia: General Drains: 22fr 3 way Admit VTE Documentation VTE Present on Admission: No VTE Mechan Device Prophylaxis: SCD's VTE Pharm Prophylaxis ordered?: No
[2024-01-18] MEDS: 0.9% Normal Saline (1000mL) 1,000 ML 125 ML IV (16:52)
[2024-01-18] MEDS: Ketorolac 15 MG/ML Vial IV (16:55)
--- NOTE | 2024-01-18 17:45 | PCM.POSTANE2 ---
Anesthesia Postop Eval I Sum Postop Eval Completion status Anesthesia document: Postop Eval 1 completed: Yes Anesthesia Postop Eval I Summary Anesthesia Postop Eval I Summary: Anesthesia Postop Eval I: Assessment Summary Airway patent Yes 01/18/24 14:07 [email or web address] Spontaneous unlabored Yes 01/18/24 14:07 [email or web address] respirations Mental status Awake 01/18/24 14:07 [email or web address] nausea No 01/18/24 14:07 [email or web address] Vomiting No 01/18/24 14:07 [email or web address] Anesthesia Postop Eval I: Fluid Summary Crystalloid volume administer 800 01/18/24 14:07 [email or web address] (ml) Colloids volume administered ( ml) Blood Product volume administered (ml) Total IV fluid infused 800 01/18/24 14:07 [email or web address] Anesthesia Postop Eval I: Summary Notes Anesthesia Complication No 01/18/24 14:07 [email or web address] Anesthesia Complication Comment: Post-operative progress note Anesthesia: Postop Eval II Evaluation Mental status: Awake Pain Level: 0 nausea: No Vomiting: No
[2024-01-18] MEDS: Albuterol 2.5 MG/3 ML VIAL.NEB. INHALATION (19:23)
[2024-01-18] MEDS: Budesonide Respules 0.5 MG/2 ML AMPUL.NEB. INHALATION (19:24)
[2024-01-18] MEDS: Docusate Sodium 100 MG Capsule 200 MG PO (20:51)
[2024-01-18] MEDS: Ciprofloxacin 400 MG/200 ML BAG 200 MG IV (20:51)
[2024-01-18] MEDS: Tamsulosin HCl 0.4 MG Capsule 0.8 MG PO (20:51)
[2024-01-18] MEDS: Losartan Potassium 50 MG Tablet PO (20:51)
[2024-01-18] MEDS: Montelukast 10 MG Tablet PO (20:51)
[2024-01-18] MEDS: Acetaminophen 500 MG Tablet PO (20:52)
[2024-01-18] MEDS: Atorvastatin Calcium 10 MG Tablet PO (20:52)
[2024-01-19] MEDS: Ketorolac 15 MG/ML Vial IV (00:28)
[2024-01-19] MEDS: 0.9% Normal Saline (1000mL) 1,000 ML 125 ML IV ×3 (00:29→08:39)
[2024-01-19 00:34] VITALS: BP 121/63; PULSE 47; RESP 18; TEMP 36.5; O2SAT 93
[2024-01-19 01:49] VITALS: BP 117/54; PULSE 56; RESP 20; TEMP 36.4; O2SAT 93
[2024-01-19 03:34] VITALS: BP 109/56; PULSE 58; RESP 22; TEMP 36.5; O2SAT 95
[2024-01-19] MEDS: Levothyroxine 137 MCG Tablet PO (06:48)
[2024-01-19] MEDS: Acetaminophen 500 MG Tablet PO (06:48)
[2024-01-19] MEDS: Albuterol 2.5 MG/3 ML VIAL.NEB. INHALATION (07:03)
[2024-01-19] MEDS: Budesonide Respules 0.5 MG/2 ML AMPUL.NEB. INHALATION (07:03)
[2024-01-19 07:04] VITALS: PULSE 56; RESP 16; O2SAT 99
--- NOTE | 2024-01-19 07:23 | PCM.PN.GU ---
Subjective Subjective s/p turp urine okay d/c mata home after voids Objective Data Objective Data Vital Signs: Vital Signs Temp Pulse Resp BP Pulse Ox O2 Del Method 97.7 F L 56 L 16 109/56 L 99 Room Air 01/19/24 03:34 01/19/24 07:04 01/19/24 07:04 01/19/24 03:34 01/19/24 07:04 01/19/24 07:04 Oxygen Delivery Method Room Air Weight: 89.896 kg Body Mass Index (BMI) 31.9 Intake & Output: Intake and Output for Last 24 Hours 01/17/24 01/18/24 01/19/24 23:59 23:59 23:59 Intake Total 510 / 510 1097.91 / 1097.91 Output Total 2375 / 2375 2500 / 2500 Balance -1865 / -1865 -1402.09 / -1402.09 Lab / Micro Data 01/06/24 13:20 01/06/24 13:20
[2024-01-19 08:31] VITALS: BP 116/49; PULSE 55; RESP 16; TEMP 36.5; O2SAT 96
[2024-01-19] MEDS: Docusate Sodium 100 MG Capsule 200 MG PO (08:58)
[2024-01-19] MEDS: Tamsulosin HCl 0.4 MG Capsule 0.8 MG PO (08:58)
[2024-01-19] MEDS: Ciprofloxacin 400 MG/200 ML BAG 200 MG IV (08:58)
--- NOTE | 2024-01-19 10:42 | CASEMGMT ---
DUSTIN BURGESS NOTE: Discharge order is in, pending pt able to void. DUSTIN BURGESS to room. Introduced self and role. Pt sitting up in chair. Pt states he lives w/his in home this is all SU, except his office that he states is not necessary he goes to. 2 steps to enter home. He states he is independent @ home. He has a shower chair, which he uses, and a back brace. He also has a walker available, if needed. He states he was unsteady when he got OOB this morning, but states this is his usual, stating when he gets up @ home, he has to hang onto things initially but then once I'm up and moving I'm okay and steady. Pt states he has done OP therapy @ [facility] and does his own exercises @ home. He denies need for HHC or OP therapy and denies other discharge needs/concerns. His will take him home. PT was ordered this AM and has been completed. DUSTIN BURGESS spoke w/PT, Nandini, who states pt did amazing and no recommendations @ dc by therapy. Venkat GILL RN, CM
--- NOTE | 2024-01-19 13:29 | CASEMGMT ---
Social Work SW met with pt to discuss advance directives.? Pt confirms he has completed a living will and health care POA naming his parag Escoto.? Pt notified that documents are not on file at [facility] and SW requested they be brought in for scanning into the EMR.? JESS Veras
--- NOTE | 2024-01-19 13:36 | NURSING ---
pt states he feels like he is emptying with void. no clots visible in urinal.
[2024-01-19 14:03] VITALS: BP 126/50; PULSE 50; RESP 18; TEMP 36.4; O2SAT 98
== END 2024-01-19 14:48 | disposition home or self-care (01) ==
LOC: SDC 14:42 → MS3 14:42
PROVIDERS: Anesthesiology; Admitting Provider Urology; PCP Family Medicine; Referring Provider Urology; Visit Provider Urology
PROC: (CPT 52601; principal; 2024-01-18 13:05)
DX: N40.1 Benign prostatic hyperplasia with lower urinary tract symptoms (principal); E85.9 Amyloidosis, unspecified; Z87.891 Personal history of nicotine dependence; N13.8 Other obstructive and reflux uropathy; J45.909 Unspecified asthma, uncomplicated; Z79.899 Other long term (current) drug therapy; Z79.890 Hormone replacement therapy; E03.9 Hypothyroidism, unspecified; I10 Essential (primary) hypertension; E78.5 Hyperlipidemia, unspecified; K21.9 Gastro-esophageal reflux disease without esophagitis; M19.90 Unspecified osteoarthritis, unspecified site; G47.33 Obstructive sleep apnea (adult) (pediatric); R06.02 Shortness of breath
CPT/HCPCS: 52601; 00914; 36415; 80048; 84443; 85025; 88305; 88341; 88342; 94640; 94668; 96361; 96365; 96366; 96375; 96376; 97162; 99221; J7030; J7120; G0378; J0744; J2405

== ENCOUNTER → 2024-01-31 | Outpatient (CLI) | payer MEDICARE, SELFPAY | END | disposition home or self-care (01) | LOC: LABSPEC 15:09 | PROVIDERS: PCP Family Medicine; Referring Provider Urology; Visit Provider Urology | DX: N40.1 Benign prostatic hyperplasia with lower urinary tract symptoms (principal) | CPT/HCPCS: 87086 ==

== ENCOUNTER → 2024-06-19 | Outpatient (CLI) | payer MEDICARE, SELFPAY ==
[2024-06-19 16:23] LABS: PSA,Total- Diagnostic 3.77 ng/mL (0.0-4.0)
== END | disposition home or self-care (01) ==
LOC: LAB 15:28
PROVIDERS: PCP Family Medicine; Referring Provider Urology; Visit Provider Urology
DX: R97.20 Elevated prostate specific antigen [PSA] (principal)
CPT/HCPCS: 36415; 84153

== ENCOUNTER → 2024-10-09 | Outpatient (CLI) | payer MEDICARE, SELFPAY ==
[2024-10-09 13:01] LABS: Cholesterol 165 mg/dL (<=200); High Density Lipoprotein 62 mg/dL; Low Density Lipoprotein Calc. 86 mg/dL; Triglycerides 85 mg/dL; Very Low Density Lipoprotein 17 mg/dL (5-40); cholesterol:hdl ratio screen 2.64
[2024-10-09 13:16] LABS: AST(SGOT) 28 U/L (<=37); Alanine Aminotransfer ALT/SGPT 20 U/L (<=46); Albumin, Serum 4.4 g/dL (3.4-4.8); Alkaline Phosphatase 75 U/L (40-129); Anion Gap 12 (5-15); BUN 28 mg/dL (4-19); Calcium,Total 8.5 mg/dL (7.6-11.0); Carbon Dioxide 20.7 mmol/L (21.0-32.0); Chloride 104 mmol/L (98-108); Globulin 2.2 g/dL (2.2-4.2); Glucose 104 mg/dL (70-99); Protein, Total 6.6 g/dL (5.9-8.4); Sodium Level 137 mmol/L (133-145); Total Bilirubin 0.62 mg/dL (0.00-1.30)
[2024-10-09 13:38] LABS: Creatinine, Serum 0.99 mg/dL (0.70-1.20)
[2024-10-09 13:39] LABS: BUN/Creat Ratio 28.4 RATIO (10-20); EST Glomerular Filtration Rate 75 (>60)
== END | disposition home or self-care (01) ==
LOC: BIMLAB 10:33
PROVIDERS: PCP Family Medicine; Referring Provider Family Medicine; Visit Provider Family Medicine
DX: I10 Essential (primary) hypertension (principal); E03.9 Hypothyroidism, unspecified
CPT/HCPCS: 36415; 80053; 80061; 84443

== ENCOUNTER → 2025-03-29 | Outpatient (CLI) | payer MEDICARE, SELFPAY ==
--- NOTE | 2025-03-29 15:38 | RAD_ITS ---
PROCEDURE: CHEST PA AND LATERAL 03/29/2025 REASON FOR EXAM: COUGH TECHNIQUE: Procedure Code: RADCXR Modality: DX Procedure: CHEST PA AND LATERAL COMPARISON: 09/17/2023. FINDINGS: The heart is enlarged. Focal elevation of the right hemidiaphragm. The lungs are clear. No acute osseous abnormalities. RAD/Chest PA and Lateral IMPRESSION: NO ACUTE FINDINGS. Reading Location: [id number]
[2025-03-29 15:44] LABS: Hematocrit 39.2 % (40-54); Hemoglobin 12.7 g/dL (13.0-16.5); Immature Granulocytes Count 0.030 X10^3/uL (0.0-0.0); Mean Corp Hgb Conc 32.4 g/dL (32-36); Mean Corpuscular Volume 101.3 fL (80-94); Mean Platelet Vol. 9.4 fl (6.2-12.0); NRBC Flagged by Analyzer 0 % (0-5); Platelet Count 186 K/mm3 (150-450); RBC Distribution Width CV 12.4 % (11.6-14.6); RBC Distribution Width SD 46.6 fl (35.1-43.9); Red Blood Count 3.87 M/mm3 (4.6-6.2); White Blood Count 8.0 K/mm3 (4.4-11.0)
== END | disposition home or self-care (01) ==
LOC: RAD 15:04
PROVIDERS: PCP Family Medicine; Referring Provider Nurse Practitioner Acute Care; Visit Provider Nurse Practitioner Acute Care
DX: J45.909 Unspecified asthma, uncomplicated (principal); R05.3 Chronic cough
CPT/HCPCS: 36415; 71046; 85025

== ENCOUNTER → 2025-04-03 | Outpatient (CLI) | payer MEDICARE, SELFPAY | END | disposition home or self-care (01) | LOC: PSN 10:41 | PROVIDERS: PCP Family Medicine; Referring Provider Nurse Practitioner Acute Care; Visit Provider Nurse Practitioner Acute Care | DX: R05.3 Chronic cough (principal) | CPT/HCPCS: 94060; 94726; 94729 ==